=== PATIENT | male | born 2000 | race Caucasian/White ===

== ENCOUNTER 2022-10-14 18:06 | Day surgery (SDC) | payer BC, SELFPAY ==
[2022-10-14] VITALS (19 sets, daily range): BP systolic 86–137; BP diastolic 34–87; PULSE 79–110; RESP 15–20; TEMP 36.4–37.2; O2SAT 96–100; BMI 26.6
--- NOTE | 2022-10-14 | DI.CT_ITS ---
Exam(s) CT LOWER EXTREMITY RT WO EXAM: CT LOWER EXTREMITY RT WO CLINICAL HISTORY: RT KNEE LACERATION. TECHNIQUE: Imaging Protocol: Axial computed tomography images with coronal and sagittal reformatted images were created and reviewed. COMPARISON: No exams were available for comparison FINDINGS: Bones: The osseous structures and articular surfaces are intact. Bony alignment is satisfactory. N o cellulitic or osteomyelitic changes are identified. There is no evidence of joint space narrowing or cystic degeneration seen. No lytic or sclerotic lesions are identified. Soft Tissues: There is air in the subcutaneous tissues around the medial knee. No radiopaque foreign bodies. There is no involvement of the joint space. There is a laceration of the soft tissues medi al to the knee. The vastus medialis muscle appears to be exposed with apparent penetration of the fa scial covering.. There is a small amount of air seen within the vastus medialis muscle. IMPRESSION: 1. Soft tissue laceration of the medial knee region. The laceration results in subcutaneous air with involvement of the fascial covering of the vastus medialis muscle. There is a small amount of intra muscular emphysema in the vastus medialis muscle. No foreign body is identified. 2. No acute fracture or dislocation. 3. No joint effusion or emphysema. RADIATION DOSE DELIVERED: 378.01mGy.cm Total DLP 378.01mGy.cm Total DLP DATA REPOSITORY: All CT scans at this facility are submitted to the National Radiology Data Registry (NRDR) Dose Index Registry (DIR) with the [employer] (ACR). RADIATION OPTIMIZATION: All CT scans at this facility use at least one of these dose optimization te chniques: automated exposure control; mA and/or kV adjustment per patient size (includes targeted exa ms where dose is matched to clinical indication); or iterative reconstruction.
--- NOTE | 2022-10-14 | DI.RAD_ITS ---
Exam(s) XR PORTABLE CHEST AP EXAM: XR PORTABLE CHEST AP CLINICAL HISTORY: PRE-OP CXR TECHNIQUE: 2D digital imaging was performed of the chest. One image was obtained. An AP view was ob tained. COMPARISON: No exams were available for comparison FINDINGS: MEDIASTINUM: Normal. HEART: Normal. PULMONARY VASCULATURE: Normal. LUNGS: Clear. PLEURAL SPACE: No pleural effusion or pneumothorax. BONE:Within normal limits for the patient's age. OTHER FINDINGS:Normal. IMPRESSION: No acute pulmonary findings. DATA REPOSITORY: RADIATION DOSE DELIVERED:
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
[2022-10-14] MEDS: Ketorolac 15 MG/ML VIAL IVP (18:27)
[2022-10-14] MEDS: fentaNYL 100 MCG/2 ML VIAL 75 MCG IVP (18:27)
[2022-10-14] MEDS: Normal Saline 1,000 ML 1000 ML IV (18:28)
[2022-10-14] MEDS: Lidocaine/Epinephri/Tetracaine Topical Gel 3 ML TP (18:28)
[2022-10-14] MEDS: ceFAZolin 2 GM/50 ML BAG IVPB (18:29)
--- NOTE | 2022-10-14 19:01 | DI.VRAD_ITS ---
PROCEDURE INFORMATION: Exam: XR Chest Exam date and time: 10/14/2022 6:50 PM Age: 21 years old Clinical indication: Pre-operative exam; Cardiovascular screening and respiratory screening exam TECHNIQUE: Imaging protocol: Radiologic exam of the chest. Views: 1 view. COMPARISON: No relevant prior studies available. FINDINGS: Lungs: Unremarkable. No consolidation. Pleural spaces: Unremarkable. No pleural effusion. No pneumothorax. Heart/Mediastinum: Unremarkable. No cardiomegaly. Bones/joints: Unremarkable. IMPRESSION: No acute findings. Dictated and Authenticated by: Tee Joyner MD. Ordering:VLAD Camargo MD
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
[2022-10-14 19:21] LABS: Abs Immature Grans 0.07 10^3/uL (0.0-0.06); Absolute Basophil Count 0.03 10^3/uL (0.0-0.2); Absolute Eosinophil Count 0.03 10^3/uL (0.0-0.7); Absolute Monocyte Count 0.82 10^3/uL (0.1-0.8); Absolute Neutrophil Count 14.25 10^3/uL (1.2-6.7); Basophils % 0.2; Eosinophils % 0.2; HCT 43.4 % (40.0-50.0); HGB 14.9 g/dL (13.5-17.5); Immature Grans % 0.4; MCH 28.4 pg (27.0-33.0); MCHC 34.3 % (32.0-36.0); MCV 83 fL (80-95); MPV 9.6 fL (8.0-11.0); Monocytes % 4.9; Neutrophils % 85.3; Platelet Count 242 10^3/uL (130-400); RBC 5.24 10^6/uL (4.36-5.78); RDW-SD 36.7 fL; WBC 16.71 10^3/uL (4.4-10.8)
[2022-10-14 19:31] LABS: Anion Gap 9.1 mmol/L (3-11); BUN 23 mg/dL (7-18); CO2 25.9 mmol/L (21.0-32.0); CREATININE 0.9 mg/dL (0.70-1.30); Calcium 8.8 mg/dL (8.5-10.1); Chloride 102 mmol/L (98-107); Estimated GFR 124.61 (mL/min/1.73m2); Glucose 106 mg/dL (74-106); Potassium 3.4 mmol/L (3.5-5.1); Sodium 137 mmol/L (136-145)
--- NOTE | 2022-10-14 19:34 | NUR.NOTE ---
Nursing Note: Laceration cleaned out with 1-L NS and surrounding area cleaned. Pt given pain meds and abx administered. Pt denies need for more pain medication. Pt AOx4 and understands next steps of care. Family aware of pt condition.
--- NOTE | 2022-10-14 19:47 | NUR.NOTE ---
Nursing Note: Pt ready for OR. Belongings: watch, helmet, shorts, shirt, socks shoes. OR checklist and OR handoff form complete. Pt understands next steps.
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
[2022-10-14] MEDS: Lactated Ringers 500 ML 30 ML IV (20:29)
--- NOTE | 2022-10-14 20:30 | NUR.NOTE ---
Nursing Note: Crutches provided with closest size available. This RN gave crutch training prior to pt going to OR. Pt thanked this RN for care.
[2022-10-14] MEDS: ceFAZolin 2 GM/50 ML BAG 360 GM (20:40)
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
--- NOTE | 2022-10-14 22:19 | W.ANESPOSTOP ---
Postoperative Evaluation Date, Time and Location Date Performed: 10/14/22 Time Performed: 22:15 Patient Location: Med/Surg Vital Signs Most Recent Imported Vital Signs: Most Recent Vital Signs Temp Pulse Resp BP Pulse Ox 37.0 C 83 15 98/52 L 100 10/14/22 22:01 10/14/22 22:01 10/14/22 22:01 10/14/22 22:01 10/14/22 22:01 Pain Score Most Recent Pain Score: Most Recent Pain Score Pain Level 0 10/14/22 20:06 Assessment Mental Status: Arousable with meaningful communication Airway and Respiratory Function: Patent airway with normal (patient baseline) respiratory exam Cardiovascular Function: Hemodynamically Stable Hydration Status: Adequately Hydrated Nausea & Vomiting: No Nausea or Vomiting Pain: Pt. Denies Any Pain Peripheral Nerve Block: Patient did not receive a nerve block
== END 2022-10-14 23:37 | disposition home or self-care (01) ==
LOC: ER 20:15 → SUR 20:16 → MS 22:22
PROVIDERS: Emergency Provider Emergency Medicine; Visit Provider Student in an Organized Health Care Education/Training Program
PROC: (CPT 12034; principal; 2022-10-14 20:00)
DX: S81.811A Laceration without foreign body, right lower leg, initial encounter (principal); V19.3XXA Pedal cyclist (driver) (passenger) injured in unspecified nontraffic accident, initial encounter; D72.829 Elevated white blood cell count, unspecified
CPT/HCPCS: 12034; 80048; 96365; 96372; 96375; 99285; 71045; 73700; 85025; J0690; J1100; J1885; J2250; J2405; J3010